=== PATIENT | female | born 1935 | race Caucasian/White ===

== ENCOUNTER 2017-03-25 14:45 | Inpatient (IN) | payer MEDICARE, BC ==
--- NOTE | ~2017-03-25 | EKG ---
PATIENT: ARON FRAGOSO UNIT #: [id number] Ventricular Rate: 124 BPM Atrial Rate: 124 BPM P-R Interval: 144 ms QRS Duration: 70 ms Q-T Interval: 316 ms QTC Calculation(Bezet): 453 ms P [place]: 69 degrees Calculated R [place]: 10 degrees Calculated T [place]: 76 degrees Diagnosis Line: Sinus tachycardia Diagnosis Line: Low voltage QRS Diagnosis Line: Nonspecific T wave abnormality Diagnosis Line: Abnormal ECG Diagnosis Line: When compared with ECG of 16-NOV-2016 14:58, Diagnosis Line: Vent. rate has increased BY 43 BPM Diagnosis Line: Nonspecific T wave abnormality now evident in Diagnosis Line: Lateral leads Diagnosis Line: Confirmed by HAI MULLINS MD ([id number]) on Diagnosis Line: 03/27/2017 8:44:32 AM INTERPRETING : TABATHA
--- NOTE | ~2017-03-25 | CR72 ---
[facility] A Service of [facility] & [facility] RADIOLOGY TEXT RESULTS PATIENT: ARON FRAGOSO LOCATION: [facility] : 37 UNIT #: [id number] AGE: [address]: Wilfred Edwards MD SEX: F ORDER DR: [id number] [facility] [address] [place], [place] [address] [id number] MR#: [id number] Acc #: [id number] NAME: ARON FRAGOSO : 1935 SEX: F STUDY DATE/TIME: 03/25/2017 14:42 UNIT: [facility] ROOM: STUDY DESCRIPTION: CR Chest Single View Portable Attending Physician: Wilfred Edwards M.D. Ordering Physician: Wilfred Edwards M.D. Primary Care Physician: Kal Treviño M.D. MEDICAL IMAGING REPORT This report is preliminary unless electronic signature is present EXAM Portable chest. INDICATIONS Weakness, shortness of breath and pneumonia today. COMPARISON 02/14/2017 FINDINGS There is a airspace infiltrate in the right lung base consistent with pneumonia. Follow up to clearing is recommended. Heart size stable. IMPRESSION Airspace infiltrate in the right lung base consistent with pneumonia. Dictated by... Dajuan Hoover M.D. THIS IS AN ELECTRONICALLY VERIFIED REPORT Dajuan Hoover M.D. at 03/25/2017 4:57 PM MEKA/abigail TD: 03/25/2017 16:55 JOB #: [id number] MEDICAL IMAGING REPORT Page 1 of 1 COPY
--- NOTE | ~2017-03-25 | HP ---
Unit #: [id number] #: [id number] Patient: ARON FRAGOSO [id number] [address] [address] [id number] I MR#: [id number] NAME: ARON FRAGOSO ROOM: 41960 Age: 81 Sex: F Admission Date: 03/25/2017 : 1935 Attending Physician: Mireille Aguirre M.D. Primary Care Physician: Kal Treviño M.D. HISTORY AND PHYSICAL CHIEF COMPLAINT Altered mental status. HISTORY OF PRESENT ILLNESS The patient is a 81-year-old female with past medical history of diabetes, chronic pain, SVT, GERD, depression, chronic kidney disease, degenerative joint disease, hypertension, COPD, who presented to the emergency department for evaluation of the above. History is obtained from chart review and discussion with ER staff as well as from the patient and daughters who are at bedside. The patient has apparently had a two- to three-day history of increasing generalized weakness. She has had several falls. There was no loss of consciousness or hitting of the head with the falls. She has had a productive cough. The family is not aware of any fever. She has had one episode of vomiting. Upon arrival in the emergency department, oxygen saturation was 95% on room air, temperature 103.7, pulse 120, respirations 22, blood pressure 169/80. Chest x-ray shows a right-sided opacity. She was given Rocephin and azithromycin. She is being admitted to [facility] for evaluation and further treatment. PAST MEDICAL HISTORY 1. Admission to [facility] 11/14 through 11/17/2014 for acute respiratory failure and COPD exacerbation. 2. COPD not on home oxygen. The patient has seen chest medicine in the past but does not apparently see them as an outpatient. 3. Chronic pain. The patient is not currently in pain management. 4. History of SVT. 5. Hypertension. 6. Diabetes. 7. GERD. 8. Depression. 9. Chronic kidney disease. 10. Degenerative joint disease. 11. Echocardiogram 08/03/2014 showed an ejection fraction of 50% to 55%. PAST SURGICAL HISTORY 1. Hysterectomy. 2. Back surgery. 3. Right hip surgery. ALLERGIES Codeine. Unit #: [id number] #: [id number] Patient: ARON FRAGOSO HOME MEDICATIONS Include: 1. Lyrica. 2. Toprol XL. 3. Lantus. 4. Humalog. 5. Vitamin E. 6. Centrum. 7. Aspirin. 8. Claritin. 9. Acetaminophen. Home medications will need to be reviewed and verified. SOCIAL HISTORY The patient continues to smoke. There is no alcohol use. She lives with her daughter. She has a cane and a walker. Her code status is a FULL CODE. FAMILY HISTORY Notable for her father having leukemia. REVIEW OF SYSTEMS A complete review of systems is negative except as indicated in the HPI. The patient is alert and oriented x3 at baseline. There has been no change in her medications. Blood sugars are typically around 170. PHYSICAL EXAMINATION VITAL SIGNS: Temperature 103.7, pulse 120, respirations 22, blood pressure 169/80, oxygen saturation 95% on room air. GENERAL: The patient is a female who is awake and alert, somewhat restless. HEENT: Head is atraumatic. Mucous membranes are dry. NECK: Supple. Trachea is midline. LUNGS: Demonstrate scattered wheezes and rhonchi. Breathing is mildly labored. HEART: Tachycardic in the one-teens. ABDOMEN: Soft, nontender. Bowel sounds present in all four quadrants. EXTREMITIES: Nontender with no pedal edema. NEUROLOGIC: Patient is awake. She follows commands. She is somewhat restless. PSYCHIATRIC: Patient is cooperative. SKIN OF EXAMINED AREAS: Warm and dry. DIAGNOSTIC STUDIES LABORATORY: Arterial blood gas shows pH of 7.478, pCO2 of 31.4, pO2 of 62.4 on 3 liters. Troponin is less than 0.05. Urinalysis shows trace leukocyte esterase, positive nitrate, 2+ protein, greater than 1000 glucose, 2+ blood with 25-50 wbc's, 4+ bacteria. INR 1. Ammonia level is 25. CBC notable for white blood cell count of 17.7 with 11% bands. Comprehensive metabolic panel notable for sodium 132 that corrects when glucose of 313 is accounted for, chloride 98, BUN 23, creatinine 1.6, alkaline phosphatase 95, albumin 3.4. BNP 113. IMAGING: Chest x-ray shows right-sided opacity. CT of the head is pending. Unit #: [id number] #: [id number] Patient: ARON FRAGOSO CARDIOVASCULAR: EKG shows sinus tachycardia with a rate of 124 beats per minute. ASSESSMENT The patient is a 81-year-old female with: 1. Pneumonia, community-acquired. The patient received Rocephin and azithromycin in the emergency department. 2. Chronic obstructive pulmonary disease exacerbation with continued tobacco abuse. 3. Sepsis. Initial lactic acid is pending. 4. Urinary tract infection. The last urine culture was from 08/07/2014 and grew 20,000 to 30,000 enterococcus. 5. Acute kidney injury. The patient's creatinine was 1.4 on 11/16/2016, it is 1.6 today. 6. Uncontrolled diabetes with a glucose of 313. 7. Altered mental status. 8. Chronic pain. 9. History of SVT. 10. Gastroesophageal reflux disease. 11. Depression. 12. Degenerative joint disease. 13. Hypertension. PLAN 1. Admit to intermediate level. 2. N.p.o. until speech evaluation. 3. Speech therapy to evaluate and treat. 4. Normal saline at 75 mL per hour. 5. Supplemental oxygen. 6. Blood cultures x2. 7. Sputum culture and sensitivity. 8. Procalcitonin level. 9. Rocephin IV and azithromycin IV for community-acquired pneumonia pending further workup. 10. DuoNeb q.4 h. while awake and q.2 h. p.r.n. 11. Solu-Medrol 80 mg IV q.12 h. 12. Sepsis protocol with repeat lactic acid. 13. Urine culture and sensitivity on urine in the lab. 14. Serial cardiac enzymes. 15. Hemoglobin A1c. 16. Low-dose sliding scale insulin with Accu-Cheks. 17. Neuro checks. 18. TSH, B12 and folate. 19. SCDs for DVT prophylaxis. 20. Protonix for GI prophylaxis since the patient will be on Solu-Medrol. 21. Repeat labs in the morning. 22. Additional workup and consultants based on above. Regarding CODE STATUS, patient is a FULL CODE. Unit #: [id number] #: [id number] Patient: ARON FRAGOSO Dictated by Teressa Santiago TD: 03/25/2017 18:30 JOB #: [id number] HISTORY AND PHYSICAL Page 1 of 1 X Mireille Aguirre MD HISTORY AND PHYSICAL
--- NOTE | ~2017-03-25 | CT71 ---
[facility] A Service of [facility] RADIOLOGY TEXT RESULTS PATIENT: ARON FRAGOSO LOCATION: [facility] : 37 UNIT #: [id number] AGE: [address]: Mireille Aguirre MD SEX: F ORDER DR: [id number] [facility] [address] [place], [place] [address] [id number] I MR#: [id number] Acc #: [id number] NAME: ARON FRAGOSO. : 1935 SEX: F STUDY DATE/TIME: 03/25/2017 17:03 UNIT: [facility] ROOM: 19961 STUDY DESCRIPTION: CT Head Wo Contrast Attending Physician: Mireille Aguirre M.D. Ordering Physician: Wilfred Edwards M.D. MEDICAL IMAGING REPORT This report is preliminary unless electronic signature is present EXAM CT brain without contrast HISTORY Disoriented and headache today. No injury. TECHNIQUE This CT exam was performed with one or more of the following radiation dose reduction techniques: automatic exposure control, adjustment of mA and/or kV according to patient size, and iterative reconstruction. FINDINGS CT brain without contrast demonstrates no intracranial hemorrhage, mass or edema. No midline shift or ventricular dilatation or extraaxial fluid collection. Mild mucosal thickening in ethmoid air cells bilaterally and in the right maxillary and sphenoid sinuses. Opacification of several left mastoid air cells. IMPRESSION No acute findings. There is no intracranial hemorrhage or mass or edema. Mild chronic ischemic changes in the deep white matter bilaterally. Dictated by... Christiano Blanchard M.D. THIS IS AN ELECTRONICALLY VERIFIED REPORT Christiano Blanchard M.D. at 03/25/2017 11:17 PM DFL/pcl TD: 03/25/2017 21:30 JOB #: [id number] [facility] A Service of [facility] RADIOLOGY TEXT RESULTS PATIENT: ARON FRAGOSO LOCATION: [facility] : 37 UNIT #: [id number] AGE: [address]: Mireille Aguirre MD SEX: F ORDER DR: MEDICAL IMAGING REPORT Page 1 of 1 COPY
--- NOTE | ~2017-03-25 | CO ---
Unit #: [id number] #: [id number] Patient: ARON FRAGOSO [id number] [address] [place], [place] [address] [id number] I MR#: [id number] NAME: ARON FRAGOSO ROOM: [facility] Age: 81 Sex: F Admission Date: 03/25/2017 : 1935 Attending Physician: Mireille Aguirre M.D. Primary Care Physician: Kal Treviño M.D. Consultation Date: 03/27/2017 CONSULTATION REPORT REASON FOR CONSULT Uncontrolled diabetes mellitus. HISTORY OF PRESENT ILLNESS This is a 81-year-old female with history of multiple medical problems including type 2 diabetes mellitus, COPD, who presented to the emergency room with increasing shortness of air and generalized weakness and multiple falls. No loss of consciousness with it. She does report to have some productive cough and vomiting on admission. She has been started on IV Solu-Medrol. Her blood sugar has been running above 400 mg/dL. I have been asked to see the patient for further management. REVIEW OF SYSTEMS A 12-point review of systems is completed. Remarkable for the weakness, shortness of air, cough with some secretions. No fever or chills. No abdominal pain. The patient has no nausea or vomiting at this point. No urgency, frequency, or dysuria. Rest of the review of systems is unremarkable. PAST MEDICAL HISTORY Type 2 diabetes mellitus, chronic respiratory failure, COPD, hypertension, depression, chronic kidney disease, degenerative joint disease. PAST SURGICAL HISTORY Hysterectomy, back surgery, right hip surgery. ALLERGIES To codeine. HOME MEDICATIONS The patient has been taking Novolin 70/30 40 units t.i.d. at home. Other medications include Lyrica, Toprol, Humalog, aspirin, Claritin. SOCIAL HISTORY Continues to smoke. No alcohol use. Lives at home with her daughter, who takes care of her insulins. PHYSICAL EXAMINATION GENERAL: She is mildly short of air, lying in the bed. VITAL SIGNS: Temperature 98.1, pulse 104, blood pressure 116/87. HEENT: EOMI. Pupils equally reactive to light. NECK: Supple. No thyromegaly noted. CHEST: Decreased air entry with no wheezing. ABDOMEN: Soft and nontender. Bowel sounds positive. Unit #: [id number] #: [id number] Patient: ARON FRAGOSO EXTREMITIES: No edema noted. NEUROLOGIC: Nonfocal. Moving all extremities. SKIN: No rash. DIAGNOSTIC STUDIES LABORATORY RESULTS: Creatinine is 1.5, glucose 407, sodium 137, potassium 4.1, calcium is 8, albumin is 2.5. A1c is 11.2. ASSESSMENT 1. Poorly controlled type 2 diabetes mellitus. 2. Chronic obstructive pulmonary disease exacerbation. PLAN The patient's blood sugars are elevated due to the IV steroids. I am going to change the patient's diet to consistent carbs with 45 g per meal. Discontinue 70/30 insulin, discontinue NovoLog insulin. Start the patient on NPH 50 units subcu before each Solu-Medrol dose. Change Solu-Medrol to 40 mg q.8 hourly. Accu-Cheks a.c. and h.s. Start R insulin 15 units each meal. Continue all other medications. Thanks again for consultation. Dictated by... Teressa Wilkes/matthew TD: 03/27/2017 17:51 JOB #: [id number] CONSULTATION REPORT Page 1 of 1 X Olga Zapien MD CONSULTATION REPORT
--- NOTE | ~2017-03-25 | DS ---
Unit #: [id number] #: [id number] Patient: ARON FRAGOSO [id number] [address] [address] [id number] I MR#: [id number] NAME: ARON FRAGOSO. ROOM: [facility] Age: 81 Sex: F Admission Date: 03/25/2017 : 1935 Discharge Date: 03/29/2017 Attending Physician: Rebecca Taveras M.D. Primary Care Physician: Kal Treviño M.D. DISCHARGE SUMMARY PRINCIPAL DIAGNOSIS 1. Sepsis secondary to right lower lobe Strep pneumoniae, community acquired pneumonia with associated bacteremia. 2. Acute hypoxic respiratory failure resolved. 3. Acute exacerbation of chronic obstructive pulmonary disease. 4. Diabetes mellitus type 2, insulin requiring and uncontrolled with hemoglobin A1c of 11.2. 5. Severe steroid induced leukocytosis. 6. Chronic pain syndrome. 7. Depression. 8. Gastroesophageal reflux disease. 9. Hypertension. 10. Probable obstructive sleep apnea. 11. Obesity. 12. 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 13. Moderate protein malnutrition. 14. Chronic kidney disease stage 3 with baseline creatinine of 1.3 to 1.4. 15. Toxic metabolic encephalopathy. CONSULTANTS Dr. Zapien, endocrinology. PROCEDURES 1. Chest x-ray on 03/25/2017 with right lower lobe infiltrate. 2. CT of the head without contrast on 03/25/2017 with no acute findings. CLINICAL HISTORY AND HOSPITAL COURSE Ms. Fragoso is a 81-year-old female who presents to the emergency department with increasing confusion. In the emergency department she was found to have a temperature of almost 104 degrees. She was also tachycardic and tachypneic. Chest ray revealed right lower lobe infiltrate. Patient was also mildly hypoxic. She was subsequently admitted. Patient was started on empiric Rocephin and azithromycin for community acquired pneumonia. With antibiotic treatment, the patient's confusion resolved. Patient has been unable to provide any sputum; however, I will note that one of her blood cultures did grow pansensitive Strep pneumoniae. Repeat blood cultures from 03/28/2017 are currently pending. However, again with antibiotic therapy the patient's fever has resolved. She has continued to have a mild leukocytosis, at least partially Unit #: [id number] #: [id number] Patient: ARON FRAGOSO secondary to steroid therapy. On the day of discharge her white blood cell count is 16.1. I have instructed patient to followup with Dr. Indio Treviño very closely to ensure that this resolved. Patient was placed on empiric IV steroids due to a dissociated exacerbation of some underlying COPD. Unfortunately she developed significant recurrent hyperglycemia with blood sugars in the 400 to 500, for which Dr. Zapien was consulted. Patient was initially placed on MPH with steroid therapy; however, steroids were subsequently discontinued and sugars have improved. The patient's baseline hemoglobin A1c is 11.2 indicating that sugars are not well controlled at home. I have discussed this with the patient and her daughter. She has received some diabetic education. I am going to transition her to a long-acting insulin named Levemir, in addition to her Humalog at home and this can further be followed by Dr. Treviño as an outpatient. The patient also has a chronic kidney disease per our records with a baseline creatinine running approximately 1.4 ever since 03/2015. On the day of discharge creatinine is 1.3. She had an associated nonanion gap metabolic acidosis and gain this can be followed up and an outpatient. Patient does demonstrated some rather significant depression in my opinion during hospitalization, but no suicidal or homicidal ideation. Will continue her on her Celexa and again she can be followed up as outpatient. Patient also demonstrates difficulty breathing when lying flat and I suspect she has an underlying obstructive sleep apnea and would benefits from outpatient polysomnography. Patient is quite anxious. I think is medically stable and can be discharged home. But again needs close followup. DISCHARGE CONDITION Stable. DISCHARGE STATUS Discharge to home. DISCHARGE MEDICATIONS 1. Vantin 200 mg p.o. b.i.d. for 12 days. 2. Lyrica 75 mg b.i.d. 3. Albuterol inhaler 1-2 puffs every 4 hours p.r.n. for shortness of breath. 4. Paxil 20 mg daily. 5. Claritin 10 mg daily. 6. Atorvastatin 40 mg daily. 7. Humalog 10 units subcu t.i.d. with meals. 8. Levemir 20 units subcutaneously at bedtime. 9. Centrum Silver 1 tablet daily. 10. Aspirin 81 mg daily. 11. Nexium 40 mg daily. 12. Vitamin D3 2,000 units p.o. daily. 13. I have held patient's lisinopril. She has been off of it here and blood pressures remain stable. I have also held her Lasix given her oral intake has been poor recently. These can be reinitiated as an outpatient if needed. DISCHARGE INSTRUCTIONS Unit #: [id number] #: [id number] Patient: ARON FRAGOSO Patient was instructed to follow a heart health, constant carb diet. Again she has received diabetic education regarding diet. She can obtain Accu-Cheks a.c. and h.s. at home to monitor dosing of insulin. FOLLOWUP Patient should followup with Dr. Indio Treviño, next week. She is to followup BMP and CBC at that time to sure renal function is stable, sugars are stable and her white blood cell count is decreasing off of steroids. Time spent on discharge 38 minutes. Dictated by... Rebecca Taveras M.D. SERGEY/nicky TD: 03/29/2017 13:48 JOB #: [id number] DISCHARGE SUMMARY Page 1 of 1 X Rebecca Taveras MD X DISCHARGE SUMMARY
[~2017-03-25 14:45] MED LIST: ACETAMINOPHEN PO; ASPIRIN EC81 M1 PO; ASPIRIN PO; ASPIRIN81 M2 PO; AVELOX400 MG PO; CENTRUM COMPLE1 EACH PO; CENTRUM PO; CENTRUM SILVER PO; CIPRO PO; CIPRO750 MG PO; CLARITIN10 M2 PO; CLARITIN10 M3 PO; COLACE PO; COMBIVENT U/D3 M4 INH; CRESTOR PO; DIFLUCAN100 MG PO; DOXYCYCLINE150 MG PO; FENOFIBRATE160 MG PO; FLEXERIL10 MG PO; GABAPENTIN300 MG PO; HUMALOG100 U/ML SUBQ; HUMIBID-LA600 MG PO; LANTUS SOLOSTAR3 ML SUBQ; LANTUS100 UNITS/ SUBQ; LEVAQUIN750 MG PO; LIPITOR40 MG PO; LISINOPRIL-HCTZ1 T19 PO; LISINOPRIL-HCTZ1 T20 PO; LISINOPRIL10 MG PO; LYRICA75 MG PO; MAXIMUM DAILY1 EACH PO; METFORMIN HCL500 M1 PO; METFORMIN PO; NABUMETONE PO; NEXIUM PO; OMEPRAZOLE20 M1 PO; PAROXETINE HCL20 M1 PO; PAROXETINE HCL20 MG PO; PAXIL PO; POTASSIUM99 M2 PO; PREDNISONE10 MG PO; PYRIDIUM100 MG PO; SYMBICORT INH; TOPROL XL50 MG PO; TRICOR145 MG PO; TYLENOL325 M1 PO; VITAMIN D2000 UNIT PO; VITAMIN D31000 UNIT PO; VITAMIN E400 UNI4 PO; ZESTORETIC 10/11 TAB PO; ZESTORETIC PO; ZETIA PO; ZOFRAN PO
[2017-03-25 14:58] LABS: ARTERIAL BLD GAS O2 SATURATION 92.4 % (90.0-100.0); ARTERIAL BLOOD GAS CARBOXY HB 1.6 %sat (0.0-9.0); ARTERIAL BLOOD GAS HCO3 23.2 mmol/L; ARTERIAL BLOOD GAS MET HB 0.7 %sat (0.0-2.0); ARTERIAL BLOOD GAS PCO2 31.4 mmHg (35.0-45.0); ARTERIAL BLOOD GAS pH 7.478 (7.350-7.450)
[2017-03-25 14:59] LABS: ARTERIAL BLOOD GAS ALLEN TEST NORMAL; ARTERIAL BLOOD GAS ART SITE LEFT RADIAL; ARTERIAL BLOOD GAS DELIVERY NASAL CANNULA; ARTERIAL BLOOD GAS PO2 62.4 mmHg (80.0-100); ARTERIAL DRAW? YES
[2017-03-25 15:17] LABS: URINE SOURCE CLEAN CATCH
[2017-03-25 15:25] LABS: BASOPHIL# 0.1 X10e3 (0-0.3); BASOPHIL% 0.7 % (0-2.5); EOSINOPHIL# 0.1 X10e3 (0-0.7); EOSINOPHIL% 0.5 % (0.0-7.0); HEMATOCRIT 42.6 % (35.0-45.0); LYMPHOCYTE# 1.5 X10e3 (1.0-3.5); LYMPHOCYTE% 8.3 % (17.0-45.0); MEAN CELL VOLUME 89.4 FL (83-96); MEAN CORPUSCULAR HEMOGLOBIN 29.3 PG (28-34); MEAN CORPUSCULAR HGB CONC 32.7 g/dL (30-36); MEAN PLATELET VOLUME 10.1 FL (6.5-11.5); MONOCYTE# 0.8 X10e3 (0-1.0); MONOCYTE% 4.7 % (3.0-12.0); NEUTROPHIL# 15.2 X10e3 (1.5-7.1); NEUTROPHIL% 85.8 % (40-75); PLATELET COUNT 187 X10e3 (140-420); RED BLOOD COUNT 4.77 X10e (3.90-5.30); RED CELL DISTRIBUTION WIDTH 13.8 % (11.0-15.5); URINE APPEARANCE CLEAR; URINE BILIRUBIN NEG (NEG); URINE BLOOD 2+ (NEG); URINE COLOR YELLOW; URINE GLUCOSE >1000 MG/DL (NEG); URINE KETONE TRACE (NEG); URINE LEUKOCYTE ESTERASE TRACE (NEG); URINE NITRATE POS (NEG); URINE PROTEIN 2+ (NEG); URINE SPECIFIC GRAVITY 1.026 (1.003-1.035); WHITE BLOOD COUNT 17.7 X10e3 (4.0-10.5)
[2017-03-25 15:27] LABS: DIFF IND YES
[2017-03-25 15:28] LABS: URBCS1 AUWI 0-2 /[HPF] (0-2); URINE BACTERIA AUWI 4+ (NEGATIVE); URINE SQUAMOUS EPITHELIAL CELL NONE SEEN /[HPF]; UWBCS1 AUWI 25-50 (0-5)
[2017-03-25 15:30] LABS: POC - CKMB 3.9 ng/mL (0.0-7.9); POC - TROPONIN <0.05 ng/mL (<=0.05)
[2017-03-25 15:40] LABS: PARTIAL THROMBOPLASTIN TIME 29.3 SECONDS (23.5-31.3); PROTHROMBIN TIME (PATIENT) 10.5 SECONDS (9.6-11.5)
[2017-03-25 15:44] LABS: PLATELET ESTIMATE NORMAL (NORMAL); RBC NORMAL YES
[2017-03-25 15:46] LABS: ALBUMIN SERUM 3.4 g/dL (3.5-5.0); BILIRUBIN, DIRECT 0.3 mg/dL (0.0-0.2); BILIRUBIN,INDIRECT 0.6 mg/dL (0.0-0.9); BILIRUBIN,TOTAL 0.9 mg/dL (0.2-2.0); BUN/CREATININE RATIO 14.37; CALCIUM SERUM 9.5 mg/dL (8.4-10.2); CREATININE SERUM 1.6 mg/dL (0.6-1.4); GLOM FILT RATE Estimated 30.3 mL/min (>60); POTASSIUM 4.3 mmol/L (3.5-5.1); PROTEIN TOTAL SERUM 7.8 g/dL (6.0-8.3)
[2017-03-25 17:02] LABS: AMPHETAMINE NEG (NEG); BARBITURATES NEG (NEG); BENZODIAZEPINES NEG (NEG); COCAINE NEG (NEG); MARIJUANA NEG (NEG); OPIATES NEG (NEG); TRICYCLIC ANTIDEPRESSANTS NEG (NEG); U METHADONE NEG (NEG)
[2017-03-25] MEDS ORDERED: LASIX PO (17:07)
[2017-03-25] MEDS ORDERED: PRINIVIL20 M1 PO (17:08)
[2017-03-25] MEDS ORDERED: PAROXETINE HCL20 MG PO (17:08)
[2017-03-25] MEDS ORDERED: CENTRUM SILVER PO (17:08)
[2017-03-25] MEDS ORDERED: VITAMIN D-32000 UNI2 PO (17:09)
[2017-03-25] MEDS ORDERED: CLARITIN10 M3 PO (17:09)
[2017-03-25] MEDS ORDERED: ASPIRIN81 M2 PO (17:10)
[2017-03-25] MEDS ORDERED: NEXIUM PO (17:10)
[2017-03-25] MEDS ORDERED: LYRICA75 MG PO (17:11)
[2017-03-25] MEDS ORDERED: HUMALOG100 UNIT/1 SUBQ (17:12)
[2017-03-25] MEDS ORDERED: LIPITOR40 MG PO (17:12)
[2017-03-25] MEDS ORDERED: POTASSIUM600 MG PO (17:13)
[2017-03-25] MEDS ORDERED: CRANBERRY TABL1 EACH PO (17:14)
[2017-03-25 18:02] LABS: PROCALCITONIN 0.48 NG/ML
[2017-03-25 18:18] LABS: FOLATE (FOLIC ACID) >23.6 ng/mL (>5.8)
[2017-03-25 22:08] LABS: MB 2.8 ng/ml
[2017-03-26 03:41] LABS: BASOPHIL# 0.1 X10e3 (0-0.3); BASOPHIL% 0.5 % (0-2.5); HEMATOCRIT 34.9 % (35.0-45.0); LYMPHOCYTE# 1.2 X10e3 (1.0-3.5); LYMPHOCYTE% 5.9 % (17.0-45.0); MEAN CELL VOLUME 90.1 FL (83-96); MEAN CORPUSCULAR HEMOGLOBIN 29.6 PG (28-34); MEAN CORPUSCULAR HGB CONC 32.8 g/dL (30-36); MEAN PLATELET VOLUME 9.6 FL (6.5-11.5); MONOCYTE# 0.6 X10e3 (0-1.0); MONOCYTE% 2.8 % (3.0-12.0); NEUTROPHIL# 18.1 X10e3 (1.5-7.1); NEUTROPHIL% 90.8 % (40-75); PLATELET COUNT 154 X10e3 (140-420); RED BLOOD COUNT 3.88 X10e (3.90-5.30); RED CELL DISTRIBUTION WIDTH 13.7 % (11.0-15.5)
[2017-03-26 03:43] LABS: DIFF IND NO; HEMOGLOBIN 11.5 gm/dL (12.0-16.0)
[2017-03-26 04:06] LABS: ALBUMIN SERUM 2.5 g/dL (3.5-5.0); BILIRUBIN,TOTAL 1.4 mg/dL (0.2-2.0); BUN/CREATININE RATIO 17.85; CALCIUM SERUM 7.8 mg/dL (8.4-10.2); CREATININE SERUM 1.4 mg/dL (0.6-1.4); GLOM FILT RATE Estimated 35.6 mL/min (>60); POTASSIUM 4.2 mmol/L (3.5-5.1); PROTEIN TOTAL SERUM 5.6 g/dL (6.0-8.3)
[2017-03-26 04:25] LABS: %MB 2.5 % (0.0-4.0)
[2017-03-27 05:23] LABS: HEMATOCRIT 33.5 % (35.0-45.0); HEMOGLOBIN 11.1 gm/dL (12.0-16.0); MEAN CELL VOLUME 89.5 FL (83-96); MEAN CORPUSCULAR HEMOGLOBIN 29.6 PG (28-34); MEAN CORPUSCULAR HGB CONC 33.1 g/dL (30-36); MEAN PLATELET VOLUME 9.5 FL (6.5-11.5); RED BLOOD COUNT 3.75 X10e (3.90-5.30); RED CELL DISTRIBUTION WIDTH 13.5 % (11.0-15.5); WHITE BLOOD COUNT 18.5 X10e3 (4.0-10.5)
[2017-03-27 06:21] LABS: BUN/CREATININE RATIO 25.33; CREATININE SERUM 1.5 mg/dL (0.6-1.4); GLOM FILT RATE Estimated 32.8 mL/min (>60); POTASSIUM 4.1 mmol/L (3.5-5.1)
[2017-03-28 05:33] LABS: HEMATOCRIT 31.8 % (35.0-45.0); HEMOGLOBIN 10.5 gm/dL (12.0-16.0); MEAN CELL VOLUME 89.3 FL (83-96); MEAN CORPUSCULAR HEMOGLOBIN 29.3 PG (28-34); MEAN CORPUSCULAR HGB CONC 32.8 g/dL (30-36); MEAN PLATELET VOLUME 9.9 FL (6.5-11.5); RED BLOOD COUNT 3.57 X10e (3.90-5.30); WHITE BLOOD COUNT 15.6 X10e3 (4.0-10.5)
[2017-03-28 06:47] LABS: BUN/CREATININE RATIO 30.71; CALCIUM SERUM 8.3 mg/dL (8.4-10.2); CREATININE SERUM 1.4 mg/dL (0.6-1.4); GLOM FILT RATE Estimated 35.6 mL/min (>60); POTASSIUM 3.5 mmol/L (3.5-5.1)
[2017-03-29 05:22] LABS: HEMATOCRIT 35.7 % (35.0-45.0); HEMOGLOBIN 11.5 gm/dL (12.0-16.0); MEAN CELL VOLUME 89.8 FL (83-96); MEAN CORPUSCULAR HEMOGLOBIN 28.8 PG (28-34); MEAN CORPUSCULAR HGB CONC 32.1 g/dL (30-36); MEAN PLATELET VOLUME 9.5 FL (6.5-11.5); RED BLOOD COUNT 3.98 X10e (3.90-5.30); RED CELL DISTRIBUTION WIDTH 13.9 % (11.0-15.5); WHITE BLOOD COUNT 16.1 X10e3 (4.0-10.5)
[2017-03-29 06:17] LABS: BUN/CREATININE RATIO 28.46; CALCIUM SERUM 8.6 mg/dL (8.4-10.2); CREATININE SERUM 1.3 mg/dL (0.6-1.4); MAGNESIUM 2.2 mg/dL (1.6-3.0); POTASSIUM 3.5 mmol/L (3.5-5.1)
[2017-03-29] MEDS ORDERED: LEVEMIR FL100 UNIT/1 SUBQ (12:55)
[2017-03-29] MEDS ORDERED: VANTIN200 MG PO (12:55)
[2017-03-29] MEDS ORDERED: ALBUTEROL17 GM INH (12:56)
== END 2017-03-29 16:10 | disposition home or self-care (01) | DRG 871 ==
LOC: CED 14:45 → CEDOF 16:55 → C3A PCU 23:38
PROVIDERS: Emergency Medicine; Family Medicine; Internal Medicine
DX: A40.3 Sepsis due to Streptococcus pneumoniae (principal); J13 Pneumonia due to Streptococcus pneumoniae; J96.01 Acute respiratory failure with hypoxia; N17.9 Acute kidney failure, unspecified; E44.0 Moderate protein-calorie malnutrition; E87.2 Acidosis; G92 Toxic encephalopathy; N18.3 Chronic kidney disease, stage 3 (moderate); J44.0 Chronic obstructive pulmonary disease with (acute) lower respiratory infection; J44.1 Chronic obstructive pulmonary disease with (acute) exacerbation; N39.0 Urinary tract infection, site not specified; E11.65 Type 2 diabetes mellitus with hyperglycemia; D72.829 Elevated white blood cell count, unspecified; T38.0X5A Adverse effect of glucocorticoids and synthetic analogues, initial encounter; G89.4 Chronic pain syndrome; F32.9 Major depressive disorder, single episode, unspecified; K21.9 Gastro-esophageal reflux disease without esophagitis; G47.33 Obstructive sleep apnea (adult) (pediatric); E66.9 Obesity, unspecified; I12.9 Hypertensive chronic kidney disease with stage 1 through stage 4 chronic kidney disease, or unspecified chronic kidney disease; F17.210 Nicotine dependence, cigarettes, uncomplicated; M19.90 Unspecified osteoarthritis, unspecified site; Z90.710 Acquired absence of both cervix and uterus; Z79.82 Long term (current) use of aspirin; Z79.4 Long term (current) use of insulin; Z80.6 Family history of leukemia; Z68.28 Body mass index [BMI] 28.0-28.9, adult
CPT/HCPCS: 36600; 51701; 70450; 71010; 80048; 80053; 80076; 80307; 81003; 82010; 82140; 82308; 82550; 82553; 82607; 82746; 82803; 82947; 83036; 83605; 83735; 83880; 84443; 84484; 85025; 85027; 85610; 85730; 87040; 87077; 87086; 87186; 92526; 92610; 93005; 94640; 94644; 94760; 96360; 97110; 97116; 97162; 97166; 97535; 99291; C9113; G8978-GP; G8979-GP; G8987-GO; G8988-GO; G8996-GN; G8997-GN; G8998-GN; J0456; J0696; J1815; J2270; J2920; J2930

== ENCOUNTER → 2017-06-30 | Outpatient (CLI) | payer MEDICARE, BC ==
[~2017-06-30] MED LIST changes: +ALBUTEROL17 GM INH; +CRANBERRY TABL1 EACH PO; +HUMALOG100 UNIT/1 SUBQ; +LASIX PO; +LEVEMIR FL100 UNIT/1 SUBQ; +POTASSIUM600 MG PO; +PRINIVIL20 M1 PO; +VANTIN200 MG PO; +VITAMIN D-32000 UNI2 PO
--- NOTE | ~2017-06-30 | MY24 ---
[facility] A Service of [facility] & [facility] RADIOLOGY TEXT RESULTS PATIENT: ARON FRAGOSO LOCATION: [facility] : 37 UNIT #: [id number] AGE: [address]: CAITIE DAVILA MD SEX: F ORDER DR: [id number] [facility] [address] [place], [place] [address] [id number] O MR#: [id number] Acc #: [id number] NAME: ARON FRAGOSO : 1935 SEX: F STUDY DATE/TIME: 06/30/2017 13:24 UNIT: [facility] ROOM: STUDY DESCRIPTION: JANET PARKER W/ CAD UNI LT Attending Physician: Kal Davila M.D. Referring Physician: Kal Davila M.D. Ordering Physician: Kal Davila M.D. Primary Care Physician: Kal Davila M.D. MEDICAL IMAGING REPORT This report is preliminary unless electronic signature is present EXAM Left breast mammogram 06/30/2017 INDICATIONS 6-month followup of probably benign calcifications on prior mammogram. TECHNIQUE Digital CC, MLO, and ML views of the left breast were obtained in addition to magnification CC and ML views. Study is reviewed with an FDA-approved CAD device. COMPARISON Comparison is made with 09/14/2016, 08/30/2016, and are 10/10/2007. FINDINGS Breast parenchyma shows scattered fibroglandular densities. No new masses or calcifications are seen. The previously seen nodule shown by ultrasound to represent a cyst in the deeper left breast has nearly completely resolved. The cluster of probably benign calcifications described previously is stable. An additional 6-month followup mammogram of the left breast with magnification views is recommended, at which time the patient cannot have the routine yearly view of the right breast. Findings were discussed with the patient at the time of her examination today. IMPRESSION Probably benign mammogram. Calcifications are stable from the prior study. Additional 6-month followup mammogram with magnification views of the left breast recommended. At that time, the patient can also get her yearly exam of the right breast. Patients over the age of 40 are entered into a reminder system with target due date for the next mammogram. A result letter will also be sent to the [facility] A Service of [facility] & [facility] RADIOLOGY TEXT RESULTS PATIENT: ARON FRAGOSO LOCATION: [facility] : 37 UNIT #: [id number] AGE: [address]: CAITIE DAVILA MD SEX: F ORDER DR: patient. BIRADS: 3 Probably benign finding; short interval followup suggested. Dictated by... Osman Hdz Jr., M.D. THIS IS AN ELECTRONICALLY VERIFIED REPORT Osman Hdz Jr., M.D. at 06/30/2017 4:51 PM CINDY/tanesha TD: 06/30/2017 15:32 JOB #: [id number] MEDICAL IMAGING REPORT Page 1 of 1 COPY
== END | disposition home or self-care (01) ==
LOC: CMAM 13:00
DX: R92.8 Other abnormal and inconclusive findings on diagnostic imaging of breast (principal); R92.1 Mammographic calcification found on diagnostic imaging of breast
CPT/HCPCS: G0206